=== PATIENT | female | born 1980 | race Caucasian/White ===

== ENCOUNTER 2023-12-16 12:32 | Outpatient (CLI) | payer BC, MEDICAID, SELFPAY ==
--- NOTE | 2023-12-16 12:41 | MM_ITS ---
WS: [id number] BILATERAL 3D TOMOSYNTHESIS DIGITAL DIAGNOSTIC MAMMOGRAPHY WITH CAD CLINICAL INFORMATION: Breast Lump HISTORY: LEFT breast lump COMPARISON: Baseline TECHNIQUE: Bilateral CC, MLO, and ML views. FINDINGS: The breasts are composed of heterogeneous fibroglandular density, which can limit the detection of sm all underlying mass lesions. Palpable marker near the 12 o'clock position LEFT breast. Dense underlyi ng parenchymal tissue. Ultrasound of this area is pending. Unremarkable RIGHT breast. A few incidental punctate calcifications. Vascular calcifications. ULTRASOUND BREAST LEFT TECHNIQUE: Ultrasound left breast focused area of concern. CLINICAL INFORMATION: Breast Lump FINDINGS: Ultrasound LEFT breast at the 11 o'clock position 7 cm from the nipple. Normal underlying parenchymal tissue. No cystic or solid lesions. No suspicious lesions to target for biopsy. No other suspicious findings. MM/[place] [id number] IMPRESSION: BI-RADS: 2-Benign FOLLOW UP: 1 Year Follow-up Recommend return to annual screening mammography.
== END 2023-12-16 12:33 | disposition home or self-care (01) ==
LOC: RAD 12:32
PROVIDERS: Family Provider Family Medicine; PCP Nurse Practitioner Family; Visit Provider Nurse Practitioner Family
DX: N63.0 Unspecified lump in unspecified breast (principal); R92.333 Mammographic heterogeneous density, bilateral breasts; R92.1 Mammographic calcification found on diagnostic imaging of breast
CPT/HCPCS: 76642; 77062; G0279

== ENCOUNTER 2023-12-27 12:26 | Outpatient (CLI) | payer BC, MEDICAID, SELFPAY ==
--- NOTE | 2023-12-27 12:29 | USR_ITS ---
PROCEDURE INFORMATION: Exam: US Abdomen Complete Exam date and time: 12/27/2023 2:04 PM Age: 43 years old Clinical indication: Abdominal pain; Generalized TECHNIQUE: Imaging protocol: Real-time ultrasound of the abdomen with image documentation. Complete exam. COMPARISON: CT lumbar spine wo con* [id number] 12/27/2023 1:35 PM FINDINGS: Liver: Liver length 13.2 cm. No focal mass or dilated intrahepatic ducts. Hepatopetal portal venous flow is seen. Gallbladder: No gallstones. No gallbladder wall thickening or pericholecystic fluid/edema. Gallbladder wall 2 mm. Biliary ducts: Common bile duct 2 mm. No dilatation. Pancreas: Visualized pancreas is unremarkable. Right kidney: 10.4 x 5.3 x 5.1 cm with renal cortical thickness of 1 cm. No mass. No hydronephrosis. Renal color flow noted. Left kidney: 9.1 x 4.7 x 5.1 cm with renal cortical thickness of 1 cm. No mass. No hydronephrosis. Renal color flow noted. Spleen: 10.7 x 8 x 4.1 cm and unremarkable in echotexture. Aorta: Unremarkable. 1.2 cm. No aneurysm. Inferior vena cava: Unremarkable. 1.4 cm. US/US abdomen complete* [id number] IMPRESSION: No acute findings.
--- NOTE | 2023-12-27 12:29 | CT_ITS ---
WS: [id number] CT LUMBAR SPINE TECHNIQUE: Noncontrast CT of the lumbar spine with coronal and sagittal reformatted images. CLINICAL INFORMATION: CLOSED FX LUMBAR VERTEBRA WEDGE COMPARISON: None. DLP: 347.[address] scans at [facility] use at least one of these dose optimization techniques: automated e xposure control; mA and/or kV adjustment per patient size (includes targeted exams where dose is matc hed to clinical indication); or iterative reconstruction. FINDINGS: Moderate anterior wedging at L1. No retropulsion. This has a chronic appearance. Minimal anterolisthe sis L4 on L5. No acute appearing compression fractures. L1-L2: Normal. L2-L3: Mild facet arthropathy. Spinal canal and foramen are patent. L3-L4: Mild annular bulging. Moderate facet arthropathy. Spinal canal and foramen are patent. L4-L5: Slight anterolisthesis. Mild annular bulging with slight narrowing LEFT subarticular recess. I mpingement traversing LEFT L5 nerve root. Moderate facet arthropathy. Foramen are patent. L5-S1: Mild annular bulging with a tiny shallow central protrusion. Slight effacement of the ventral thecal sac. Foramen are patent. Visualized pelvic bony structures: Normal. Paravertebral soft tissues: Normal. CT/CT lumbar spine wo con* [id number] IMPRESSION: 1. Moderate anterior wedging at L1 with loss of approximately 50% vertebral he ight anteriorly. This has a chronic appearance 2. No acute appearing compression fractures. 3. Mild annular bulging L4-5 with slight narrowing of the LEFT L4-5 subarticul ar recess. 4. Tiny shallow central protrusion L5-S1.
--- NOTE | 2023-12-27 12:29 | USR_ITS ---
PROCEDURE INFORMATION: Exam: US Pelvis, Complete, Non-Obstetric Exam date and time: 12/27/2023 2:40 PM Age: 43 years old Clinical indication: Abdominal pain; Other: Not specified; Additional info: Abdominal pain, PT having CT too TECHNIQUE: Imaging protocol: Transabdominal pelvic nonobstetric ultrasound. Complete exam. Real time ultrasound with image documentation. COMPARISON: US abdomen complete* [id number] 12/27/2023 2:04 PM FINDINGS: Limitations: Transvaginal exam attempted but unsuccessful as patient was in pain. Uterus: Uterus measures 6.7 x 5.7 cm on transverse exam and 9.4 cm on sagittal trace exam. Heterogeneous echotexture noted. Endometrium appears thickened, measuring 12 mm. Right ovary/adnexa: Right ovary measures 3.7 x 3.3 x 3 cm with a volume 19.2 mL. A rounded hypoechoic anechoic cyst of the right ovary is seen, measuring 2.2 x 2 x 1.8 cm. Right ovarian flow is seen. PSV 9.7 cm/s with EDV 4.5 cm/s. Left ovary/adnexa: Left ovary not visualized on evaluation of the left adnexal region. Intraperitoneal space: No significant free fluid. Urinary bladder: Urinary bladder is unremarkable as visualized. US/US pelvic complete* [id number] IMPRESSION: 1. Unable to perform transvaginal exam due to patient pain. 2. Heterogeneous echotexture of the uterus with consideration of fibroid appearance. 3. Endometrial thickening with measured endometrial thickness of 12 mm. 4. 2.2 x 2 x 1.8 cm right ovarian cyst. Right ovarian flow is seen. Left ovary not visualized.
== END 2023-12-27 12:27 | disposition home or self-care (01) ==
LOC: RAD 12:26
PROVIDERS: Family Provider Family Medicine; PCP Nurse Practitioner Family; Visit Provider Nurse Practitioner Family
DX: N83.291 Other ovarian cyst, right side (principal); S32.010A Wedge compression fracture of first lumbar vertebra, initial encounter for closed fracture; M47.896 Other spondylosis, lumbar region; R93.89 Abnormal findings on diagnostic imaging of other specified body structures; R10.9 Unspecified abdominal pain
CPT/HCPCS: 72131; 76700; 76856

== ENCOUNTER 2024-01-09 18:00 | Inpatient (IN) | payer BC, SELFPAY ==
[2024-01-09] VITALS (21 sets, daily range): BP systolic 102–123; BP diastolic 55–68; PULSE 82–102; RESP 14–21; TEMP 36.4–37.4; O2SAT 97–99; BMI 25.8; BMI 24.8
--- NOTE | 2024-01-09 18:07 | ED_ITS ---
HPI - Abdominal Pain 2 General: Chief Complaint: Abdominal Pain Stated Complaint: abd pain, n/v Time Seen by Provider: 01/09/24 18:06 History of Present Illness: 43-year-old female comes in today with n ausea vomiting and abdominal pain starting this afternoon. Patient was brought in by EMS from [place]. Patient appears restless and in moderate pain. Patient has a history of diabetes type 2, thyroid disorder, and high cholesterol. Patient does endorse use of marijuana and methamphetamines. Patient was given a total of 200 mcg of fentanyl and route along with 8 mg of Zofran. Patient reports taking a dose of Trulicity yesterday which had caused her some abdominal discomfort the last time but not this severe. Associated Symptoms: Reports nausea and vomiting Related Data Allergies Allergy/AdvReac Type Severity Reaction Status Date / Time No Known Allergies Allergy Verified 01/09/24 18:12 Review of Systems 2 General: Reports: 10 or more systems reviewed and unremarkable except in HPI and below GI: Reports: abdominal pain, nausea and vomiting Physical Exam 2 Const: COMMON NORMALS: alert HENMT: COMMON NORMALS: normocephalic HEAD & SCALP: normocephalic Neck/C-Spine: COMMON NORMALS: full ROM Resp: COMMON NORMALS: normal respiratory effort and clear to auscultation bilaterally AUSCULTATION: clear to auscultation bilaterally Cardio: COMMON NORMALS: regular rate and regular rhythm RATE: regular rate RHYTHM: regular rhythm GI: COMMON NORMALS: Soft to palpation AUSCULTATION: Yes Hyperactive bowel sounds present PALPATION: Yes Soft to palpation, Yes Tenderness to palpation present (GI) and Yes Guarding due to palpation present (GI) : COMMON NORMALS: Yes no CVA tenderness BLADDER/KIDNEY EXAM: Yes no CVA tenderness Back/Pelvis: COMMON NORMALS: no CVA tenderness Extremity: COMMON NORMALS: normal to inspection Neuro: SENSORIUM/ORIENTATION: Yes alert Skin: COMMON NORMALS: turgor normal GENERAL SKIN EXAM: turgor normal Course 2 Vital Signs: Vital signs: Vital Signs Temperature 97.5 F L 01/09/24 18:02 Pulse Rate 96 01/09/24 18:45 Respiratory Rate 20 H 01/09/24 18:02 Blood Pressure 116/59 01/09/24 18:45 Pulse Oximetry 99 01/09/24 18:45 Oxygen Delivery Me thod Room Air 01/09/24 18:02 MDM - Abdominal Pain Medical Decision Making 43-year-old female comes in today with complaints of abdominal pain and nausea and vomiting. Patient does admit to meth use today. Patient was brought in by EMS and was given 200 mcg of fentanyl and 8 mg Zofran and route. Last blood glucose was 318. Differential diagnosis includes but not limited to methamphetamine intoxication, dehydration, rhabdomyolysis, diabetic ketoacidosis, pancreatitis. Patient's blood sugar was 14, anion gap was 30, serum ketones was positive. White blood cell count was 15,000. 2029, reviewed case with Dr. Hannah who will accept patient to ICU for DKA but wanted to wait until the abdominal CT was complete. Patient was made aware of problem and need for treatment with admission and agreed to plan. 2129, abdominal CT noted no inner abdominal process. Patient will be admitted to ICU for diabetic ketoacidosis. Dr. Hannah agreed for admission. Dr. Maloney, attending ER physician, agreed the plan. Lab Data 01/09/24 19:09 01/09/24 19:09 Labs/Radiology: Radiology Impressions Abdomen/Pelvis CT 01/09/24 20:16 IMPRESSION: No acute intra-abdominal process. Laboratory Results WBC 15.25 10^3/uL (3.29-11.43) H 01/09/24 19:09 RBC 4.53 10^6/uL (3.85-5.65) 01/09/24 19:09 Hgb 12.30 g/dL (11.27-16.99) 01/09/24 19:09 Hct 39.0 % (36-47) 01/09/24 19:09 MCV 86.1 fl (85-98) 01/09/24 19:09 MCH 27.2 pg (27-33) 01/09/24 19:09 MCHC 31.5 g/dL (30-55) 01/09/24 19:09 RDW 15.6 % (12.1-15.1) H 01/09/24 19:09 Plt Count 377 10^3/cmm (157-399) 01/09/24 19:09 MPV 9.0 fL (7.4-10.4) 01/09/24 19:09 Neut % (Auto) 89.0 % 01/09/24 19:09 Lymph % (Auto) 5.6 % 01/09/24 19:09 [place] % (Auto) 4.3 % 01/09/24 19:09 Eos % (Auto) 0.1 % 01/09/24 19:09 Baso % (Auto) 0.5 % 01/09/24 19:09 Neut # (Auto) 13.59 10^3/uL (1.8-7.7) H 01/09/24 19:09 Lymph # (Auto) 0.9 10^3/uL (0.8-4.8) 01/09/24 19:09 [place] # (Auto) 0.7 10^3/uL (0.2-0.9) 01/09/24 19:09 Eos # (Auto) 0.0 10^3/uL (0.0-0.8) 01/09/24 19:09 Baso # (Auto) 0.1 10^3/uL (0.0-0.1) 01/09/24 19:09 Nucleated RBC % (auto) 0 % 01/09/24 19:09 Nucleated RBCs # 0.0 /100WBC 01/09/24 19:09 Specimen Type Arterial 01/09/24 20:15 Sample Site Radial, right 01/09/24 20:15 ABG pH 7.19 (7.35-7.45) L 01/09/24 20:15 ABG pCO2 34.2 mmHg (35-45) L 01/09/24 20:15 ABG pO2 44.1 mmHg (80.0-100.0) L 01/09/24 20:15 ABG HCO3 13.0 mmol/L (22-26) L 01/09/24 20:15 ABG Base Excess -14.2 mmol/L (-2.0-2.0) L 01/09/24 20:15 Manpreet Test Pos 01/09/24 20:15 Hematocrit 37.7 % (37-47) 01/09/24 20:15 O2 Delivery Device None 01/09/24 20:15 Residential Electrician ID Cl 01/09/24 20:15 Sodium 131 mmol/L (136-145) L 01/09/24 19:09 Potassium 4.8 mmol/L (3.5-5.1) 01/09/24 19:09 Chloride 93 mmol/L (98-107) L 01/09/24 19:09 Carbon Dioxide 12 mmol/L (22-29) L 01/09/24 19:09 Anion Gap 30.8 (5-19) H 01/09/24 19:09 BUN 20 mg/dL (6-20) 01/09/24 19:09 Creatinine 0.7 mg/dL (0.5-0.9) 01/09/24 19:09 GFR Calculation 91.8 mL/min (90-130) 01/09/24 19:09 Glucose 410 mg/dL (65-115) H 01/09/24 19:09 POC Glucose 373 mg/dL (70-110) H 01/09/24 20:55 Calculated Osmolality 292 mOsm/kg (285-295) 01/09/24 19:09 Lactic Acid 2.1 mmol/L (0.5-2.2) 01/09/24 19:09 Calcium 8.9 mg/dL (8.5-10.5) 01/09/24 19:09 Phosphorus 4.7 mg/dL (2.5-4.5) H 01/09/24 19:09 Magnesium 1.8 mg/dL (1.7-2.3) 01/09/24 19:09 Total Bilirubin 0.4 mg/dL (0.15-1.2) 01/09/24 19:09 AST 15 U/L (0-32) 01/09/24 19:09 ALT 12 U/L (0-33) 01/09/24 19:09 Alkaline Phosphatase 73 U/L (35-105) 01/09/24 19:09 Creatine Kinase 63 U/L (26-192) 01/09/24 19:09 C-Reactive Protein 4.4 mg/L (0.0-4.9) 01/09/24 19:09 Total Protein 7.0 g/dL (6.6-8.7) 01/09/24 19:09 Albumin 4.1 g/dL (3.5-5.2) 01/09/24 19:09 Globulin 2.9 g/dL (1.3-4.6) 01/09/24 19:09 Lipase 9 U/L (13-60) L 01/09/24 19:09 TSH 3.31 uIU/mL (0.27-4.20) 01/09/24 19:09 HCG, Qual Negative (Negative) 01/09/24 19:09 Urine Color Yellow (Yellow) 01/09/24 20:59 Urine Appearance Clear (CLEAR) 01/09/24 20:59 Urine pH 5.5 (5-7) 01/09/24 20:59 Ur Specific [place] 1.030 (1.005-1.030) 01/09/24 20:59 Urine Protein 1+ (Negative) A 01/09/24 20:59 Urine Glucose (UA) 3+ (Normal) H 01/09/24 20:59 Urine Ketones 4+ (Negative) 01/09/24 20:59 Urine Blood 2+ (Negative) A 01/09/24 20:59 Urine Nitrate Negative (Negative) 01/09/24 20:59 Urine Bilirubin Negative (Negative) 01/09/24 20:59 Urine Urobilinogen 1.0 mg/dL (Negative) 01/09/24 20:59 Ur Leukocyte Esterase Negative (Negative) 01/09/24 20:59 Urine RBC 0-2 /hpf (0-2) 01/09/24 20:59 Urine WBC 0-5 /hpf (0-5) 01/09/24 20:59 Ur Squamous Epith Cells 0-5 /hpf (0-5) 01/09/24 20:59 Amorphous Sediment Not Reportable 01/09/24 20:59 Urine Bacteria None seen /hpf (NONE) 01/09/24 20:59 Hyaline Casts 2.46 /lpf 01/09/24 20:59 Serum Ketones Positive (Negative) H 01/09/24 19:09 All radiology interpretation(s) finalized by discharge Discharge Plan Discharge Patient Disposition: Admitted As Inpatient Clinical Impression: Methamphetamine intoxication DKA (diabetic ketoacidosis) Qualifiers: Diabetes mellitus type: type 2 Diabetes mellitus complication detail: without coma Qualified Code(s): E11.10 - Type 2 diabetes mellitus with ketoacidosis without coma Condition: Stable Coding Level of Care Code ED Floor Cashier for Dianna Valdez
[2024-01-09] MEDS: metoclopramide 5 mg/mL SDV 2 mL 10 MG IVP (18:43)
[2024-01-09] MEDS: LORazepam 2 mg/mL INJ 1 mL IVP (18:43)
[2024-01-09] MEDS: sodium chloride 0.9% 1,000 ML 999 ML IV ×2 (18:43→20:58)
[2024-01-09 19:27] LABS: Basophils # 0.1 10^3/uL (0.0-0.1); Basophils % 0.5 %; Eosinophils % 0.1 %; Lymphocytes # 0.9 10^3/uL (0.8-4.8); Lymphocytes % 5.6 %; Mean Corpuscular HGB Conc 31.5 g/dL (30-55); Mean Corpuscular Hemoglobin 27.2 pg (27-33); Mean Corpuscular Volume 86.1 fl (85-98); Monocytes # 0.7 10^3/uL (0.2-0.9); Monocytes % 4.3 %; Neutrophils # 13.59 10^3/uL (1.8-7.7); Nucleated Red Blood Cells % 0 %; Platelet Count 377 10^3/cmm (157-399); Red Blood Count 4.53 10^6/uL (3.85-5.65); Red Cell Distribution Width 15.6 % (12.1-15.1); White Blood Count 15.25 10^3/uL (3.29-11.43)
[2024-01-09 19:36] LABS: Ketone (Acetest) Serum Positive (Negative)
[2024-01-09 19:37] LABS: HCG, Serum Qual Negative (Negative)
[2024-01-09 19:46] LABS: Alanine Aminotransferase 12 U/L (0-33); Albumin Level 4.1 g/dL (3.5-5.2); Alkaline Phosphatase 73 U/L (35-105); Anion Gap 30.8 (5-19); Aspartate Amino Transferase 15 U/L (0-32); Blood Urea Nitrogen 20 mg/dL (6-20); C Reactive Protein 4.4 mg/L (0.0-4.9); Calcium 8.9 mg/dL (8.5-10.5); Carbon Dioxide 12 mmol/L (22-29); Chloride 93 mmol/L (98-107); Creatine Phosphokinase 63 U/L (26-192); Creatinine Clr Calc Pharmacy 110.5662; Globulin 2.9 g/dL (1.3-4.6); Glomerular Filtration Rate 91.8 mL/min (90-130); Glucose 410 mg/dL (65-115); Lipase 9 U/L (13-60); Osmolality Calculated 292 mOsm/kg (285-295); Potassium 4.8 mmol/L (3.5-5.1); Sodium 131 mmol/L (136-145); Total Bilirubin 0.4 mg/dL (0.15-1.2)
--- NOTE | 2024-01-09 20:16 | CTR_ITS ---
PROCEDURE INFORMATION: Exam: CT Abdomen And Pelvis With Contrast Exam date and time: 01/09/2024 8:36 PM Age: 43 years old Clinical indication: Abdominal pain; Additional info: Abd pain TECHNIQUE: Imaging protocol: Computed tomography of the abdomen and pelvis with contrast. Radiation optimization: All CT scans at this facility use at least one of these dose optimization techniques: automated exposure control; mA and/or kV adjustment per patient size (includes targeted exams where dose is matched to clinical indication); or iterative reconstruction. Contrast material: OMNI 350; Contrast volume: 100 ml; Contrast route: INTRAVENOUS (IV); COMPARISON: US pelvic complete* [id number] 12/27/2023 2:40 PM RADIATION DOSE METRICS: Total DLP (mGy-cm): 495 FINDINGS: Liver: Normal. No mass. Gallbladder and biliary ducts: Normal. No calcified stones. No ductal dilation. Pancreas: Normal. No ductal dilation. Spleen: Calcified granulomas in the spleen. Adrenal glands: Normal. No mass. Kidneys and ureters: Normal. No hydronephrosis. Stomach and bowel: Unremarkable. No obstruction. No mucosal thickening. Appendix: No evidence of appendicitis. Intraperitoneal space: Unremarkable. No free air. No significant fluid collection. Vasculature: Vascular calcifications. Lymph nodes: Unremarkable. No enlarged lymph nodes. Urinary bladder: Unremarkable as visualized. Reproductive: Unremarkable as visualized. Bones/joints: Mild degenerative of the symphysis pubis and sacroiliac joints. Mild degenerative disease of both hip joints. Chronic severe compression deformity of the L1 vertebral body. Soft tissues: Small fat containing umbilical hernia. CT/CT abdomen pelvis w con* [id number] IMPRESSION: No acute intra-abdominal process.
[2024-01-09 20:23] LABS: ABG PCO2 34.2 mmHg (35-45); ABG PH Result 7.19 (7.35-7.45); Arterial Blood Gas Hematocrit 37.7 % (37-47); Base Excess ABG -14.2 mmol/L (-2.0-2.0); Blood Gas Allen Test Pos; Blood Gas Operator Identificat CL; Blood Gas Sample Site Radial, right; Blood Gas Sample Type Arterial; PO2 ABG 44.1 mmHg (80.0-100.0)
[2024-01-09 20:33] LABS: Magnesium 1.8 mg/dL (1.7-2.3); Phosphorus 4.7 mg/dL (2.5-4.5)
[2024-01-09] MEDS: iohexol 350 mg/mL 500 mL Btl (per mL) IV (20:39)
[2024-01-09] MEDS: insulin regular-human 100 units/1 mL 10 UNIT IVP (20:58)
[2024-01-09 20:59] LABS: Glucose Point of Care 373 mg/dL (70-110)
[2024-01-09 21:03] LABS: Charge for UA Resulting for Rev
[2024-01-09 21:05] LABS: Bilirubin Urine Negative (Negative); Blood Urine 2+ (Negative); Glucose Urine UA 3+ (Normal); Ketones Urine 4+ (Negative); Leukocyte Esterase Urine Negative (Negative); Nitrate Urine Negative (Negative); Protein Urine 1+ (Negative); Urine Appearance Clear (CLEAR); Urine Color Yellow (Yellow); pH Urine 5.5 (5-7)
[2024-01-09 21:05] LABS: Thyroid Stimulating Hormone 3.31 uIU/mL (0.27-4.20)
[2024-01-09 21:06] LABS: Lactic Sepsis W/Reflex 2.1 mmol/L (0.5-2.2)
[2024-01-09 21:19] LABS: Bacteria Urine None Seen /hpf; Hyaline Casts Urine 2.46 /lpf; RBC Urine 0-2 /hpf (0-2); Squamous Epithelial Cell Urine 0-5 /hpf (0-5); WBC Urine 0-5 /hpf (0-5)
--- NOTE | 2024-01-09 21:45 | PM.HP ---
Providers/Chief Complaint Admitting Physician: Reggie Hannah Primary Care Provider: Cheryl Dotson [employer] REPRESENTATIVE-C Chief Complaint: abd pain, n/v History of Present Illness 43-year-old lady with history of labile diabetes, on insulin as well as Trulicity, has been reports in the past had difficulties with maintaining blood glucose with intermittent hypoglycemia episodes, presented to ER after developing abdominal pain, nausea, recurrent episodes of vomiting, malaise, fatigue, she initially said she thought was triggered by Trulicity, her, reportedly also later admitted to having taken methamphetamine. Mental status in ER has been on and off per , with some lethargy, confusion. Will blood earlier she was awake, asked for ice chips and threw them on the floor. During my visit she is sleeping, moves all extremities, repositions in bed, does not wake up when I try to ask her questions. In ER she is found with dehydration, metabolic acidosis, ABG 7.19/34.2/44, with anion gap 30.8, bicarb 12, lipase 9, TSH normal, lactic acid 2.1, with positive serum and urine ketones. With leukocytosis 15.25. CT abdomen pelvis without acute process. Review of Systems General: Reports: ROS unobtainable due to mental status Medications/Allergies Allergies Allergy/AdvReac Type Severity Reaction Status Date / Time No Known Allergies Allergy Verified 01/09/24 18:12 PFSH Acute PFSH: Medical History Diabetes mellitus, labile Vitals/I&O/Wt Last Vital Signs Temp 97.5 F L 01/09/24 18:02 Pulse 96 01/09/24 18:45 Resp 20 H 01/09/24 18:02 BP 116/59 01/09/24 18:45 Pulse Ox 99 01/09/24 18:45 O2 Del Method Room Air 01/09/24 18:02 01/09/24 01/09/24 01/09/24 06:59 14:59 22:59 Intake Total 1000 / 1000 Balance 1000 / 1000 Weight last 48 hrs Weight 74.843 kg Physical Exam Const: ORIENTATION/CONSCIOUSNESS: Yes lethargic OTHER: states mental status has been in and out, with lethargy, was awake, but earlier asking for ice chips, but confused, through the ice chips over the floor. HENMT: COMMON NORMALS: oropharynx normal Eye: OTHER: Pupils equal. Neck/C-Spine: COMMON NORMALS: no JVD Resp: COMMON NORMALS: normal respiratory effort and clear to auscultation bilaterally AUSCULTATION: clear to auscultation bilaterally Cardio: COMMON NORMALS: no JVD, regular rhythm, S1 normal heart sound present, S2 normal heart sound present and No murmurs present (Cardio) RHYTHM: regular rhythm HEART SOUNDS: S1 normal heart sound present and S2 normal heart sound present GI: COMMON NORMALS: Normal to inspection, nondistended, normoactive bowel sounds present, Soft to palpation and non-tender PALPATION: Yes Soft to palpation Extremity: COMMON NORMALS: no joint enlargement and no pedal edema Neuro: COMMON NORMALS: moves all extremities SENSORIUM/ORIENTATION: Yes alert OTHER: No rigidity. No tremor. Skin: COMMON NORMALS: no rashes or lesions noted GENERAL SKIN EXAM: no rashes or lesions noted Data 01/09/24 19:09 01/09/24 19:09 Micro: Microbiology 01/09/24 20:59 Blood Culture - Preliminary Blood SPECIMEN COLLECTED 01/09/24 20:49 Blood Culture - Preliminary Blood SPECIMEN COLLECTED A&P Assessment and plan (1) DKA (diabetic ketoacidosis): With malaise, abdominal discomfort, nausea, vomiting, fatigue, with dehydration, metabolic acidosis, reviewed vitals, CBC, CMP, magnesium, phosphorus, lactic acid, CK, CRP, lipase, TSH, hCG, UA, serum ketones, CT abdomen pelvis, ER provider note, discussed with ER provider. Finding of ketoacidosis with metabolic acidosis, 7.29/34.2/44.1/13 on ABG, with anion gap of 30.8, bicarb 12, glucose 410, with positive serum and urine ketones. With nausea vomiting, abdominal pain, lactic acid is normal. CT abdomen pelvis unremarkable. Discussed with her . As per discussion admitted treatment intensive care unit, insulin drip, IV hydration, chemistry monitoring, intake and output monitoring replace electrolytes depending on repeat studies. PPI prophylaxis, VTE prophylaxis with Lovenox. Caution on resumption of subcutaneous insulin, states previously with labile diabetes, glucose sometimes down as low as 30s. Has been on 35 units of long-acting insulin as well as Trulicity and metformin. Check A1c. Abdominal pain, nausea and vomiting. PPI, Zofran as needed. CT abdomen pelvis without acute abnormality. Lipase normal. N.p.o., sips chips, meds only if awake. Discussed with aspiration precautions. Requested respiratory viral panel. Qualifiers: Diabetes mellitus complication detail: without coma Diabetes mellitus type: type 2 Qualified Code(s): E11.10 - Type 2 diabetes mellitus with ketoacidosis without coma (2) Acute encephalopathy: Acute metabolic encephalopathy with DKA, also reported she had taken methamphetamine, possible acute methamphetamine defecation as per report, although she is somewhat confused currently. Will request UDS. Assess head CT. Otherwise afebrile, without meningeal signs, without obvious focal abnormality, although could not perform full examination. Intensive care admission as above. Treat dehydration, DKA. Monitor for any complications of methamphetamine use, possible withdrawal. Revisit once she is awake, able to further discuss. (3) Methamphetamine intoxication: As above. She reportedly stated she did take methamphetamine. Monitor for any worsening intoxication, seizure precautions, any signs of withdrawal. Route is unknown. Blood cultures are collected. Requested UDS. (4) Diabetes mellitus, labile: With history of labile diabetes, glucose fluctuating while on insulin with episodic hypoglycemia down into 30s. Check A1c. Plan Requested to confirm home medications, please review once available. Attestations Medical Necessity Statement*: Admission for 2 midnights anticipated for assessment management of DKA, acute metabolic and possibly toxic encephalopathy. Coding Level of Care Code Critical Care >/= 30 minutes Critical care time (in minutes): 40 The high probability of a clinically significant, sudden or life threatening deterioration, as referenced in this documentation, required my full and direct attention, intervention and personal management. The critical care time shown is in addition to time spent performing any reported separately billable procedures and includes the following: [x] Data and vital sign review and interpretation [x] Patient assessment, examination and intervention [x] Medication orders and management [x] Patient/Family updates as able [x] Care Coordination and Documentation. Diagnoses DKA (diabetic ketoacidosis) E11.10 Diabetes mellitus complication detail: without coma Diabetes mellitus type: type 2 Acute encephalopathy G93.40 Methamphetamine intoxication F15.929 Diabetes mellitus, labile E10.9
--- NOTE | 2024-01-09 21:47 | CTR_ITS ---
PROCEDURE INFORMATION: Exam: CT Head Without Contrast Exam date and time: 01/09/2024 9:57 PM Age: 43 years old Clinical indication: Screening exam; Additional info: AMS TECHNIQUE: Imaging protocol: Computed tomography of the head without contrast. Radiation optimization: All CT scans at this facility use at least one of these dose optimization techniques: automated exposure control; mA and/or kV adjustment per patient size (includes targeted exams where dose is matched to clinical indication); or iterative reconstruction. COMPARISON: No relevant prior studies available. RADIATION DOSE METRICS: Total DLP (mGy-cm): 1059.18 FINDINGS: Brain: Normal. No hemorrhage. Unremarkable white matter. No mass effect. Contrast is seen in the dural venous sinuses, from prior CT abdomen with IV contrast. Cerebral ventricles: No ventriculomegaly. Paranasal sinuses: Visualized sinuses are unremarkable. No fluid levels. Mastoid air cells: Visualized mastoid air cells are well aerated. Bones: Unremarkable. No acute fracture. Soft tissues: Unremarkable. CT/CT head wo con* [id number] IMPRESSION: No acute intracranial abnormality.
[2024-01-09 21:56] LABS: Glucose Point of Care 282 mg/dL (70-110)
[2024-01-09] MEDS: INSULIN REGULAR IN 0.9 % NACL 100 UNIT/100 ML BAG 7.5 UNIT IV (21:58)
[2024-01-09 22:42] LABS: Reflex Lactate Order REFLEX LACTIC ORDERD
[2024-01-09 22:46] LABS: Glucose Point of Care 287 mg/dL (70-110)
[2024-01-09 23:21] LABS: Lactic Acid level (Lactate) 1.7 mmol/L (0.5-2.2)
[2024-01-09] MEDS: sodium chlor 0.9% + KCl 20 mEq 20 MEQ/1,000 ML BAG 200 MEQ IV (23:26)
[2024-01-09] MEDS: enoxaparin 40 mg/0.4 mL Syringe SUBCUT (23:27)
[2024-01-09] MEDS: pantoprazole 40 mg SDV IVP (23:27)
[2024-01-09 23:56] LABS: Estmated Average Glucose 232; Hemoglobin A1C 9.7 % (4.0-6.0)
[2024-01-10] VITALS (56 sets, daily range): BP systolic 86–121; BP diastolic 48–70; PULSE 67–108; RESP 12–23; TEMP 37–37.8; O2SAT 92–100; BMI 25.3
[2024-01-10 00:35] LABS: Amphetamines Screen Urine Positive (Negative); Barbiturates Screen Urine Negative (Negative); Benzodiazepines Screen Urine Negative (Negative); Cocaine Screen Urine Negative (Negative); Opiate Screen Urine Negative (Negative); PCP Screen Urine Negative (Negative); THC Screen Urine Positive (Negative)
[2024-01-10] MEDS: D5-NS 0.45% + KCL 20 mEq 20 MEQ/1,000 ML BAG 200 MEQ IV ×2 (01:18→06:52)
[2024-01-10 01:19] LABS: Glucose Point of Care 264 mg/dL (70-110)
[2024-01-10 01:30] LABS: Glucose Point of Care 181 mg/dL (70-110)
[2024-01-10 01:33] LABS: Adenovirus Not Detected (NOT DETECT); Chlamydia Pneumoniae Not Detected (NOT DETECT); Coronavirus 229E,HKU1,NL63,OC4 Not Detected (NOT DETECT); Human Metapneumovirus Not Detected (NOT DETECT); Human Rhinovirus/Enterovirus Not Detected (NOT DETECT); Influenza A Not Detected (NOT DETECT); Influenza A H1 Not Detected (NOT DETECT); Influenza A H1-2009 Not Detected (NOT DETECT); Influenza A H3 Not Detected (NOT DETECT); Influenza B Not Detected (NOT DETECT); Mycoplasma Pneumoniae Not Detected (NOT DETECT); Parainfluenza Virus Type 1 Not Detected (NOT DETECT); Parainfluenza Virus Type 2 Not Detected (NOT DETECT); Parainfluenza Virus Type 3 Not Detected (NOT DETECT); Parainfluenza Virus Type 4 Not Detected (NOT DETECT); Respiratory Syncytial Virus A Not Detected (NOT DETECT); Respiratory Syncytial Virus B Not Detected (NOT DETECT); SARS-COV-2 Not Detected (NOT DETECT)
[2024-01-10 01:34] LABS: Anion Gap 21.2 (5-19); Blood Urea Nitrogen 19 mg/dL (6-20); Calcium 7.7 mg/dL (8.5-10.5); Carbon Dioxide 14 mmol/L (22-29); Chloride 103 mmol/L (98-107); Creatinine Clr Calc Pharmacy 108.6867; Glomerular Filtration Rate 91.8 mL/min (90-130); Glucose 216 mg/dL (65-115); Magnesium 1.7 mg/dL (1.7-2.3); Osmolality Calculated 287 mOsm/kg (285-295); Phosphorus 3.1 mg/dL (2.5-4.5); Potassium 4.2 mmol/L (3.5-5.1); Sodium 134 mmol/L (136-145)
[2024-01-10 02:31] LABS: Glucose Point of Care 159 mg/dL (70-110)
[2024-01-10 03:28] LABS: Glucose Point of Care 171 mg/dL (70-110)
[2024-01-10 03:54] LABS: Basophils # 0.1 10^3/uL (0.0-0.1); Basophils % 0.5 %; Hematocrit 32.9 % (36-47); Lymphocytes # 2.2 10^3/uL (0.8-4.8); Lymphocytes % 17.1 %; Mean Corpuscular HGB Conc 32.8 g/dL (30-55); Mean Corpuscular Hemoglobin 27.5 pg (27-33); Mean Corpuscular Volume 83.7 fl (85-98); Mean Platelet Volume 9.1 fL (7.4-10.4); Monocytes # 1.6 10^3/uL (0.2-0.9); Monocytes % 12.2 %; Neutrophils # 9.14 10^3/uL (1.8-7.7); Nucleated Red Blood Cells % 0 %; Platelet Count 343 10^3/cmm (157-399); Red Blood Count 3.93 10^6/uL (3.85-5.65); Red Cell Distribution Width 15.5 % (12.1-15.1); White Blood Count 13.07 10^3/uL (3.29-11.43)
[2024-01-10 04:07] LABS: Glucose Point of Care 181 mg/dL (70-110)
[2024-01-10 04:15] LABS: Alanine Aminotransferase 9 U/L (0-33); Albumin Level 3.5 g/dL (3.5-5.2); Alkaline Phosphatase 58 U/L (35-105); Anion Gap 16.6 (5-19); Aspartate Amino Transferase 12 U/L (0-32); Blood Urea Nitrogen 17 mg/dL (6-20); Calcium 7.7 mg/dL (8.5-10.5); Carbon Dioxide 17 mmol/L (22-29); Chloride 105 mmol/L (98-107); Creatinine Clr Calc Pharmacy 108.6867; Globulin 2.1 g/dL (1.3-4.6); Glomerular Filtration Rate 91.8 mL/min (90-130); Glucose 197 mg/dL (65-115); Magnesium 1.7 mg/dL (1.7-2.3); Osmolality Calculated 285 mOsm/kg (285-295); Phosphorus 3.5 mg/dL (2.5-4.5); Potassium 4.6 mmol/L (3.5-5.1); Sodium 134 mmol/L (136-145); Total Bilirubin 0.3 mg/dL (0.15-1.2); Total Protein 5.6 g/dL (6.6-8.7)
[2024-01-10 05:13] LABS: Glucose Point of Care 185 mg/dL (70-110)
[2024-01-10 06:10] LABS: Glucose Point of Care 192 mg/dL (70-110)
--- NOTE | 2024-01-10 06:44 | FL_ITS ---
WS: [id number] LUMBAR PUNCTURE CLINICAL INFORMATION: AMS, fever COMPARISON: None. TECHNIQUE: Informed consent: The procedure and its potential risk and complications were discussed with the raul ent. Verbal and written consent was obtained. Timeout: A timeout was performed to confirm correct patient, procedure, and site. Patient was prepped and draped in the usual sterile fashion. Lidocaine 1% was used for local anesthes ia. Utilizing fluoroscopic guidance, a 3.5 inch 22-gauge spinal needle was advanced into the subarach noid space at L4-5 via LEFT oblique sublaminar approach. Free flow of clear CSF was obtained. 13 cc o f CSF was collected and sent the lab for further analysis. FLUOROSCOPIC TIME: 1min [id number] # of spot films: 1 FL/FL guided lumbarpunc dx* [id number] IMPRESSION: Fluoroscopically guided lumbar puncture. No immediate complications
--- NOTE | 2024-01-10 06:54 | P.PHAVANC_ITS ---
Vancomycin Goal - Goal Vancomycin Goal:: 10-15 mg/L Vancomycin Indication:: Other (Empiric Therapy) - Therapy Current therapy:: Other Antibiotic (Ceftriaxone 2 gm) Day of therpy:: Day [1]of [] . Actual body weight (kg): 73.5 kg Economy body weight: 59.3 kg Dosing weight (kg): 73.5 kg - Data Labs: WBC 13.07 10^3/uL (3.29-11.43) H 01/10/24 03:43 RBC 3.93 10^6/uL (3.85-5.65) 01/10/24 03:43 Hgb 10.80 g/dL (11.27-16.99) L 01/10/24 03:43 Hct 32.9 % (36-47) L 01/10/24 03:43 MCV 83.7 fl (85-98) L 01/10/24 03:43 MCH 27.5 pg (27-33) 01/10/24 03:43 MCHC 32.8 g/dL (30-55) 01/10/24 03:43 RDW 15.5 % (12.1-15.1) H 01/10/24 03:43 Sodium 134 mmol/L (136-145) L 01/10/24 03:43 Potassium 4.6 mmol/L (3.5-5.1) 01/10/24 03:43 Chloride 105 mmol/L (98-107) 01/10/24 03:43 Carbon Dioxide 17 mmol/L (22-29) L 01/10/24 03:43 Anion Gap 16.6 (5-19) 01/10/24 03:43 BUN 17 mg/dL (6-20) 01/10/24 03:43 Creatinine 0.7 mg/dL (0.5-0.9) 01/10/24 03:43 GFR Calculation 91.8 mL/min (90-130) 01/10/24 03:43 Last dialysis session:: N/A Drug administration history:: Medications Ceftriaxone Sodium (Ceftriaxone 2,000 Mg Sdv) 2,000 mg IVP Q12H EDDIE; Protocol Vancomycin HCl (Vancocin) 1,250 mg in 250 mls @ 166.667 mls/hr IV Q12H EDDIE Treatment plan:: new consult Regimen:: Vancomycin 1250mg IVPB Q12H Follow up:: SCr daily with AM labs Vancomycin Trough before 4th dose Rationale:: Cmax 32.5 expected Cpeak 29.8 expected Cmin 13.8 expected
[2024-01-10 07:03] LABS: Glucose Point of Care 205 mg/dL (70-110)
[2024-01-10] MEDS: vancomycin 1,250 MG/250 ML PIGGYBACK 166.67 MG IV ×2 (07:17→18:16)
[2024-01-10] MEDS: cefTRIAXone 2,000 mg SDV 2000 MG IVP (07:17)
[2024-01-10] MEDS: water for injection-sterile 20 ML 100 ML (07:27)
[2024-01-10 08:12] LABS: Glucose Point of Care 193 mg/dL (70-110)
[2024-01-10 09:11] LABS: Glucose Point of Care 241 mg/dL (70-110)
--- NOTE | 2024-01-10 09:14 | PC.PHAR ---
Spouse has rx bottles in room. Verified with pharmacy, the following: Atorvastatin 40mg replaced with Rosuvastatin 10mg. levothyroxine increased from 88mcg to 100mcg. Pt picked up Zofran 8mg odt yesterday.
[2024-01-10 10:13] LABS: Iron 41 ug/dL (37-145)
[2024-01-10 10:29] LABS: Vitamin B12 590 pg/mL (232-1245)
[2024-01-10 10:40] LABS: Blood Urea Nitrogen 14 mg/dL (6-20); Calcium 7.5 mg/dL (8.5-10.5); Carbon Dioxide 16 mmol/L (22-29); Chloride 104 mmol/L (98-107); Creatinine Clr Calc Pharmacy 127.9581; Glomerular Filtration Rate 109.6 mL/min (90-130); Glucose 255 mg/dL (65-115); Osmolality Calculated 285 mOsm/kg (285-295); Sodium 133 mmol/L (136-145)
[2024-01-10 10:45] LABS: Anion Gap 17.2 (5-19); Potassium 4.2 mmol/L (3.5-5.1)
[2024-01-10 10:48] LABS: Percent Saturation 18.6 % (20-50); Total Iron Binding Capacity 220 mcg/dl; Unsaturated Iron Binding 179 ug/dL (112-347)
[2024-01-10 10:57] LABS: Glucose Point of Care 235 mg/dL (70-110)
[2024-01-10] MEDS: piperacillin-tazobactam 3.375 GM in sodium chloride 0.9% (plus) 50 ML IV ×2 (12:29→18:16)
[2024-01-10] MEDS: dextrose 5%-sod chloride 0.9% 1,000 ML 125 ML IV (12:30)
--- NOTE | 2024-01-10 13:17 | P.PN_ITS ---
Subjective 2 Subjective: Admitted overnight. H&P and labs appreciated. On examination patient laying comfortably in bed, drowsy, at bedside. Patient is able to wake up and gives some history. Denies any headache or photophobia. Complaining of mild back pain. Appreciate vitals. Vitals/I&O/Wt Last Vital Signs Temp 100.1 F H 01/10/24 04:00 Pulse 72 01/10/24 09:00 Resp 13 01/10/24 09:00 BP 100/60 01/10/24 09:00 Pulse Ox 98 01/10/24 09:00 O2 Del Method Room Air 01/10/24 06:00 01/09/24 01/10/24 01/10/24 22:59 06:59 14:59 Intake Total 1000 / 1000 2411.600 / 3411.600 0.883 / 0.883 Output Total 250 / 250 Balance 1000 / 1000 2161.600 / 3161.600 0.883 / 0.883 Weight last 48 hrs Weight 73.5 kg Weight 73.5 kg Weight 72 kg Weight 74.843 kg Physical Exam 2 Const: COMMON NORMALS: no acute distress, average body habitus and alert G ENERAL APPEARANCE: cooperative, lethargic and well hydrated O RIENTATION/CONSCIOUSNESS: Yes lethargic HENMT: COMMON NORMALS: oropharynx normal Eye: OTHER: Pupils equal. Neck/C-Spine: COMMON NORMALS: no JVD Resp: COMMON NORMALS: normal respiratory effort and clear to auscultation bilaterally AUSCULTATION: clear to auscultation bilaterally Cardio: COMMON NORMALS: no JVD, regular rhythm, S1 normal heart sound present, S2 normal heart sound present and No murmurs present (Cardio) RHYTHM: regular rhythm HEART SOUNDS: S1 normal heart sound present and S2 normal heart sound present GI: COMMON NORMALS: Normal to inspection, nondistended, normoactive bowel sounds present, Soft to palpation and non-tender PALPATION: Yes Soft to palpation Extremity: COMMON NORMALS: no joint enlargement and no pedal edema Neuro: COMMON NORMALS: moves all extremities SENSORIUM/ORIENTATION: Yes alert and Yes lethargic OTHER: No rigidity. No tremor. Skin: COMMON NORMALS: no rashes or lesions noted GENERAL SKIN EXAM: no rashes or lesions noted Urinary Catheter Management: Arnold: Cath Placed During This Visit: yes Reason for Continuing Indwelling Catheter: Accurate Measurement of Urinary Output in Critically Ill Patients Urinary Catheter Date of Insertion: 01/09/24 Urinary Catheter Time of Insertion: 23:36 Data 01/10/24 03:43 01/10/24 15:09 Micro: Microbiology 01/09/24 20:59 Blood Culture - Preliminary Blood SPECIMEN COLLECTED 01/09/24 20:49 Blood Culture - Preliminary Blood SPECIMEN COLLECTED A&P Assessment and plan (1) DKA (diabetic ketoacidosis): Continue with insulin drip for now. Most recent BMP shows elevated anion gap. Check BMP every 4 hour. Monitor potassium. Target over 5. Switch fluid to D5 NS at 125 cc for now. A1c of 9.7. Patient takes Trulicity, Lantus and sliding scale at home. Will plan to transition over to sliding scale Lantus depending on insulin requirement 24 hours. Once anion gap closes we will plan to start on Lantus diet. N.p.o. for now. Qualifiers: Diabetes mellitus complication detail: without coma Diabetes mellitus type: type 2 Qualified Code(s): E11.10 - Type 2 diabetes mellitus with ketoacidosis without coma (2) Acute encephalopathy: Most likely in setting of DKA along with amphetamine abuse. Urine drug screen positive for methamphetamines. Seems to be resolving. Lumbar puncture ordered overnight with concerns for meningitis. For now concerns are low as patient does not have any photophobia, headache, nausea and kernig's sign is negative. Aspiration precaution. Seizure precaution. Follow-up blood culture. Check MRSA swab. For now continue with IV vancomycin. Switch to IV Zosyn. (3) Methamphetamine intoxication: As above. She reportedly stated she did take methamphetamine. Monitor for any worsening intoxication, seizure precautions, any signs of withdrawal. Route is unknown. Blood cultures are collected. Requested UDS. (4) Diabetes mellitus, labile: With history of labile diabetes, glucose fluctuating while on insulin with episodic hypoglycemia down into 30s. Check A1c. Plan Abdominal pain: Most likely in setting of DKA. CT abdomen/pelvis negative for acute abnormality. Lipase normal. LFTs within normal limits. Continue with Protonix IV, Zofran as needed. Medical reconciliation appreciated. Restart home dose of levothyroxine. Check TSH. Full code N.p.o. Protonix for PUD prophylaxis Lovenox for DVT prophylaxis Attestations 2 Medical Necessity Statement*: Requires further hospitalization for management of diabetic ketoacidosis, acute metabolic encephalopathy in setting of DKA, amphetamine abuse viral meningitis is ruled out Critical Care Time: The high probability of a clinically significant, sudden or life threatening deterioration of the patient's [endocrine, neurology] system(s) required my full and direct attention, intervention and personal management. The critical care time is as shown. This time is in addition to time spent performing any reported procedures but includes the following: [x] Data and vital sign review and interpretation [x] Patient assessment, examination and intervention [x] Documentation [x] Medication orders and management Critical Care Time (min): 70 Coding Level of Care Code Critical Care >/= 30 minutes Critical care time (in minutes): 70 The high probability of a clinically significant, sudden or life threatening deterioration, as referenced in this documentation, required my full and direct attention, intervention and personal management. The critical care time shown is in addition to time spent performing any reported separately billable procedures and includes the following: [x] Data and vital sign review and interpretation [x ] Patient assessment, examination and intervention [x] Medication orders and management [x] Patient/Family updates as able [x] Care Coordination and Documentation. Diagnoses DKA (diabetic ketoacidosis) E11.10 Diabetes mellitus complication detail: without coma Diabetes mellitus type: type 2 Acute encephalopathy G93.40 Methamphetamine intoxication F15.929 Diabetes mellitus, labile E10.9
[2024-01-10 14:48] LABS: Glucose Point of Care 216 mg/dL (70-110)
[2024-01-10 14:48] LABS: Glucose Point of Care 243 mg/dL (70-110)
[2024-01-10 15:02] LABS: CSF Mononuclear # 0.001 10^3/uL (50-90); Mononuclear WBC CSF % 100 % (50-90); Polynuclear WBC CSF % 0 % (0-10); Red Blood Cell CSF 0 10^3/uL (0-0); White Blood Cell CSF 1 /uL (0-5)
[2024-01-10 15:07] LABS: Appearance CSF CLEAR (CLEAR); Color CSF COLORLESS (COLORLESS); Cyto Order Verification No Order
[2024-01-10 15:27] LABS: Glucose CSF 152 mg/dL (40-70); Total Protein CSF 29 mg/dL (15-45)
[2024-01-10 15:32] LABS: Anion Gap 16.9 (5-19); Blood Urea Nitrogen 11 mg/dL (6-20); Calcium 7.7 mg/dL (8.5-10.5); Carbon Dioxide 18 mmol/L (22-29); Chloride 103 mmol/L (98-107); Creatinine Clr Calc Pharmacy 127.9581; Glomerular Filtration Rate 109.6 mL/min (90-130); Glucose 263 mg/dL (65-115); Osmolality Calculated 287 mOsm/kg (285-295); Potassium 3.9 mmol/L (3.5-5.1); Sodium 134 mmol/L (136-145)
[2024-01-10 15:48] LABS: Glucose Point of Care 228 mg/dL (70-110)
[2024-01-10 16:38] LABS: Glucose Point of Care 229 mg/dL (70-110)
[2024-01-10 17:53] LABS: Glucose Point of Care 233 mg/dL (70-110)
[2024-01-10 18:50] LABS: Glucose Point of Care 242 mg/dL (70-110)
[2024-01-10 19:57] LABS: Glucose Point of Care 241 mg/dL (70-110)
[2024-01-10 20:09] LABS: Anion Gap 14.7 (5-19); Blood Urea Nitrogen 9 mg/dL (6-20); Calcium 7.3 mg/dL (8.5-10.5); Carbon Dioxide 19 mmol/L (22-29); Chloride 105 mmol/L (98-107); Creatinine Clr Calc Pharmacy 127.9581; Glomerular Filtration Rate 109.6 mL/min (90-130); Glucose 251 mg/dL (65-115); Osmolality Calculated 287 mOsm/kg (285-295); Potassium 3.7 mmol/L (3.5-5.1); Sodium 135 mmol/L (136-145)
[2024-01-10] MEDS: dextrose 5%-sod chloride 0.9% 1,000 ML 175 ML IV (20:19)
[2024-01-10] MEDS: atorvastatin 40 mg Tablet PO (21:37)
[2024-01-10] MEDS: insulin glargine 100 units/1 mL 40 UNIT SUBCUT (21:37)
[2024-01-10] MEDS: pantoprazole 40 mg SDV IVP (21:38)
[2024-01-10 23:48] LABS: Anion Gap 16.2 (5-19); Blood Urea Nitrogen 8 mg/dL (6-20); Calcium 7.3 mg/dL (8.5-10.5); Carbon Dioxide 17 mmol/L (22-29); Chloride 105 mmol/L (98-107); Creatinine Clr Calc Pharmacy 127.9581; Glomerular Filtration Rate 109.6 mL/min (90-130); Glucose 371 mg/dL (65-115); Osmolality Calculated 291 mOsm/kg (285-295); Potassium 4.2 mmol/L (3.5-5.1); Sodium 134 mmol/L (136-145)
[2024-01-11] VITALS (26 sets, daily range): BP systolic 93–129; BP diastolic 55–83; PULSE 62–89; RESP 12–18; TEMP 36.7–37.1; O2SAT 95–99
[2024-01-11 00:15] LABS: Glucose Point of Care 260 mg/dL (70-110)
[2024-01-11] MEDS: enoxaparin 40 mg/0.4 mL Syringe SUBCUT (00:23)
[2024-01-11] MEDS: piperacillin-tazobactam 3.375 GM in sodium chloride 0.9% (plus) 50 ML IV ×3 (02:51→22:25)
[2024-01-11 04:15] LABS: Basophils # 0.1 10^3/uL (0.0-0.1); Basophils % 0.8 %; Eosinophils # 0.1 10^3/uL (0.0-0.8); Eosinophils % 1.2 %; Hematocrit 34.1 % (36-47); Lymphocytes # 2.4 10^3/uL (0.8-4.8); Lymphocytes % 32.4 %; Mean Corpuscular HGB Conc 32.6 g/dL (30-55); Mean Corpuscular Volume 86.1 fl (85-98); Mean Platelet Volume 9.4 fL (7.4-10.4); Monocytes # 0.8 10^3/uL (0.2-0.9); Monocytes % 11.3 %; Neutrophils # 3.96 10^3/uL (1.8-7.7); Nucleated Red Blood Cells % 0 %; Platelet Count 304 10^3/cmm (157-399); Red Blood Count 3.96 10^6/uL (3.85-5.65); Red Cell Distribution Width 15.7 % (12.1-15.1); White Blood Count 7.34 10^3/uL (3.29-11.43)
[2024-01-11 04:39] LABS: Chol HDL Ratio 3.11 mg/dL (0.0-4.40); Cholesterol 196 mg/dL (0-200); HDL Cholesterol 63 mg/dL (60-100); LDL Cholesterol Calculated 123 mg/dL (50-129); Magnesium 1.7 mg/dL (1.7-2.3); Triglycerides 52 mg/dL (0-150); VLDL Cholestrol Calculation 10 mg/dL (0-30)
[2024-01-11 04:40] LABS: Alanine Aminotransferase 11 U/L (0-33); Albumin Level 3.1 g/dL (3.5-5.2); Alkaline Phosphatase 56 U/L (35-105); Anion Gap 15.1 (5-19); Aspartate Amino Transferase 17 U/L (0-32); Blood Urea Nitrogen 7 mg/dL (6-20); Calcium 7.7 mg/dL (8.5-10.5); Carbon Dioxide 18 mmol/L (22-29); Chloride 105 mmol/L (98-107); Creatinine Clr Calc Pharmacy 127.9581; Globulin 2.4 g/dL (1.3-4.6); Glomerular Filtration Rate 109.6 mL/min (90-130); Glucose 292 mg/dL (65-115); Osmolality Calculated 287 mOsm/kg (285-295); Potassium 4.1 mmol/L (3.5-5.1); Sodium 134 mmol/L (136-145); Total Bilirubin 0.4 mg/dL (0.15-1.2); Total Protein 5.5 g/dL (6.6-8.7)
[2024-01-11 05:10] LABS: Folate Level 18.6 ng/mL (4.8-37.3)
[2024-01-11] MEDS: vancomycin 1,250 MG/250 ML PIGGYBACK 166.67 MG IV (06:09)
[2024-01-11 06:51] LABS: Glucose Point of Care 202 mg/dL (70-110)
[2024-01-11] MEDS: levothyroxine 100 mcg Tablet PO (08:12)
[2024-01-11] MEDS: insulin lispro 100 unit/1 mL SUBCUT ×4 (08:15→21:00)
[2024-01-11] MEDS: buPROPion XL (24 HR) 150 mg Tablet 450 MG PO (11:03)
[2024-01-11 11:11] LABS: Glucose Point of Care 209 mg/dL (70-110)
--- NOTE | 2024-01-11 11:23 | PC.NURSE ---
Arnold removed per patient request at 0945. Patient was able to void at 1115.
--- NOTE | 2024-01-11 13:38 | PM.PN ---
Subjective Subjective: Overnight patient's anion gap closed up. Today morning seen in ICU. at bedside. Patient is laying comfortably in bed. Awake and alert. Denies of having any nausea. Tolerating diet. Seems to be overwhelmed and emotional because of her diabetes. Vitals/I&O/Wt Last Vital Signs Temp 98.8 F 01/11/24 12:00 Pulse 82 01/11/24 12:00 Resp 18 01/11/24 11:00 BP 104/55 01/11/24 12:00 Pulse Ox 98 01/11/24 12:00 O2 Del Method Room Air 01/11/24 12:00 01/10/24 01/11/24 01/11/24 22:59 06:59 14:59 Intake Total 2653.717 / 2904.600 50 / 2954.600 610 / 610 Output Total 750 / 750 1300 / 2050 650 / 650 Balance 1903.717 / 2154.600 -1250 / 904.600 -40 / -40 Weight last 48 hrs Weight 79.7 kg Weight 73.5 kg Weight 73.5 kg Weight 72 kg Weight 74.843 kg Physical Exam Const: COMMON NORMALS: no acute distress, average body habitus and alert GENERAL APPEARANCE: cooperative, lethargic and well hydrated ORIENTATION/CONSCIOUSNESS: Yes lethargic HENMT: COMMON NORMALS: oropharynx normal Eye: OTHER: Pupils equal. Neck/C-Spine: COMMON NORMALS: no JVD Resp: COMMON NORMALS: normal respiratory effort and clear to auscultation bilaterally AUSCULTATION: clear to auscultation bilaterally Cardio: COMMON NORMALS: no JVD, regular rhythm, S1 normal heart sound present, S2 normal heart sound present and No murmurs present (Cardio) RHYTHM: regular rhythm HEART SOUNDS: S1 normal heart sound present and S2 normal heart sound present GI: COMMON NORMALS: Normal to inspection, nondistended, normoactive bowel sounds present, Soft to palpation and non-tender PALPATION: Yes Soft to palpation Extremity: COMMON NORMALS: no joint enlargement and no pedal edema Neuro: COMMON NORMALS: moves all extremities SENSORIUM/ORIENTATION: Yes alert and Yes lethargic OTHER: No rigidity. No tremor. Psych: COMMON NORMALS: mental status grossly normal, cooperative, denies homicidal ideation and denies suicidal ideation APPEARANCE: Yes grossly normal ATTITUDE: Yes calm and Yes engaged ACTIVITY/MOTOR BEHAVIOR: Yes appropriate eye contact MOOD & AFFECT: Yes anxious, Yes sad and Yes tearful Skin: COMMON NORMALS: no rashes or lesions noted GENERAL SKIN EXAM: no rashes or lesions noted Urinary Catheter Management: Arnold: Cath Placed During This Visit: yes Reason for Continuing Indwelling Catheter: Accurate Measurement of Urinary Output in Critically Ill Patients Urinary Catheter Date of Insertion: 01/09/24 Urinary Catheter Time of Insertion: 23:36 Data 01/11/24 02:25 01/11/24 02:25 Micro: Microbiology 01/10/24 13:10 Gram Stain - Final Cerebrospinal Fluid CSF Culture - Preliminary 01/09/24 20:59 Blood Culture - Preliminary Blood NEGATIVE TO DATE 01/09/24 20:49 Blood Culture - Preliminary Blood NEGATIVE TO DATE 01/09/24 20:59 Bacterial Antigens - Final Urine Kidney 01/09/24 20:59 Legionella Urinary Antigen - Final Unknown Source A&P Assessment and plan (1) DKA (diabetic ketoacidosis): DKA resolved. Patient overwhelmed with diabetes. A1c of 9.7. As per patient forgets to give herself insulin. They have been trying to decrease Humalog hence Trulicity was recently started. Patient last took Trulicity on Saturday. Today is Saturday. Continue with Lantus 40 units daily along with sliding scale at moderate dose protocol. Depending on the insulin requirement in next 24 hours will uptitrate the dose of Lantus. Will try to change Lantus to twice daily. Discussed with the patient regarding various modalities to help her maintain her blood sugars at home. Discussed target blood sugar between 1 50-300 for now. Discussed she should have an alarm on the phone to remind herself to get the Lantus. She should have a sliding scale possibly on the refrigerator. Discussed that she should be able to check her blood sugars 3 times a day before each meal and write down the amount of insulin and the blood sugar she has not follow-up with a primary care within next 2 weeks for further adjustment of medications. Qualifiers: Diabetes mellitus complication detail: without coma Diabetes mellitus type: type 2 Qualified Code(s): E11.10 - Type 2 diabetes mellitus with ketoacidosis without coma (2) Acute encephalopathy: Most likely in setting of DKA along with amphetamine abuse. Urine drug screen positive for methamphetamines. Resolved. Meningitis ruled out. CSF study appreciated. Patient does not have any photophobia, headache, nausea and kernig's sign is negative. Aspiration precaution. Seizure precaution. Follow-up blood culture, CHF culture. Check MRSA swab. For now continue with IV vancomycin. IV Zosyn. (3) Methamphetamine intoxication: As above. She reportedly stated she did take methamphetamine. Monitor for any worsening intoxication, seizure precautions, any signs of withdrawal. Route is unknown. Blood cultures are collected. Requested UDS. (4) Diabetes mellitus, labile: With history of labile diabetes, glucose fluctuating while on insulin with episodic hypoglycemia down into 30s. As above. Plan Abdominal pain: Most likely in setting of DKA. CT abdomen/pelvis negative for acute abnormality. Lipase normal. LFTs within normal limits. Continue with Protonix IV, Zofran as needed. Medical reconciliation appreciated. Restart home dose of levothyroxine. Check TSH. Anxiety/depression: Continue with home dose of bupropion. Full code Carb consistent diet Protonix for PUD prophylaxis Loven[facility] D[facility] Attestations Medical Necessity Statement*: Requires further hospitalization for management of resolving DKA while outpatient insulin dose is set up, altered mental status in setting of meth abuse while meningitis is ruled out Diagnoses DKA (diabetic ketoacidosis) E11.10 Diabetes mellitus complication detail: without coma Diabetes mellitus type: type 2 Acute encephalopathy G93.40 Methamphetamine intoxication F15.929 Diabetes mellitus, labile E10.9
[2024-01-11 16:42] LABS: Glucose Point of Care 248 mg/dL (70-110)
[2024-01-11 18:57] LABS: Vancomycin Trough 4.4 ug/mL (10-15)
[2024-01-11] MEDS: vancomycin 1,750 MG/350 ML PIGGYBACK 175 MG IV (20:12)
[2024-01-11] MEDS: atorvastatin 40 mg Tablet PO (20:12)
[2024-01-11] MEDS: insulin glargine 100 units/1 mL 40 UNIT SUBCUT (21:01)
[2024-01-11] MEDS: pantoprazole 40 mg SDV IVP (22:26)
[2024-01-12] VITALS: BP 101/62; PULSE 81; RESP 16; TEMP 36.8; O2SAT 98
[2024-01-12 00:28] LABS: Glucose Point of Care 62 mg/dL (70-110)
[2024-01-12] MEDS: enoxaparin 40 mg/0.4 mL Syringe SUBCUT (00:30)
[2024-01-12 00:58] LABS: Glucose Point of Care 78 mg/dL (70-110)
--- NOTE | 2024-01-12 01:46 | PC.NURSE ---
Patient called nursing in stating she was sweating and then cold, feeling like her sugar was low. Nurse checked sugar and resulted at 62 via POC. Patient was given juice per protocol. Blood sugar rechecked 15 minutes later and resulted at 78. Per protocol, blood glucose was rechecked 30 minutes later and resulted at 80. Physician notified. Plan of care ongoing.
[2024-01-12 01:47] LABS: Glucose Point of Care 80 mg/dL (70-110)
[2024-01-12 03:38] LABS: Glucose Point of Care 49 mg/dL (70-110)
[2024-01-12 04:00] VITALS: BP 124/79; PULSE 81; RESP 16; TEMP 36.5; O2SAT 100
[2024-01-12] MEDS: vancomycin 1,250 MG/250 ML PIGGYBACK 250 MG IV (04:12)
[2024-01-12 04:16] LABS: Glucose Point of Care 100 mg/dL (70-110)
[2024-01-12 04:18] LABS: Basophils % 0.7 %; Eosinophils # 0.1 10^3/uL (0.0-0.8); Eosinophils % 1.8 %; Hematocrit 36.2 % (36-47); Lymphocytes # 2.4 10^3/uL (0.8-4.8); Lymphocytes % 42.6 %; Mean Corpuscular Hemoglobin 27.2 pg (27-33); Mean Corpuscular Volume 84.8 fl (85-98); Mean Platelet Volume 8.9 fL (7.4-10.4); Monocytes # 0.8 10^3/uL (0.2-0.9); Monocytes % 14.5 %; Neutrophils # 2.26 10^3/uL (1.8-7.7); Nucleated Red Blood Cells % 0 %; Platelet Count 313 10^3/cmm (157-399); Red Blood Count 4.27 10^6/uL (3.85-5.65); Red Cell Distribution Width 15.6 % (12.1-15.1); White Blood Count 5.64 10^3/uL (3.29-11.43)
[2024-01-12 04:48] LABS: Alanine Aminotransferase 11 U/L (0-33); Albumin Level 3.7 g/dL (3.5-5.2); Alkaline Phosphatase 59 U/L (35-105); Anion Gap 13.6 (5-19); Aspartate Amino Transferase 13 U/L (0-32); Blood Urea Nitrogen 9 mg/dL (6-20); Calcium 8.6 mg/dL (8.5-10.5); Carbon Dioxide 25 mmol/L (22-29); Chloride 106 mmol/L (98-107); Creatinine Clr Calc Pharmacy 194.9602; Globulin 2.1 g/dL (1.3-4.6); Glucose 49 mg/dL (65-115); Osmolality Calculated 288 mOsm/kg (285-295); Potassium 3.6 mmol/L (3.5-5.1); Sodium 141 mmol/L (136-145); Total Bilirubin 0.2 mg/dL (0.15-1.2); Total Protein 5.8 g/dL (6.6-8.7)
[2024-01-12 04:56] LABS: Magnesium 1.7 mg/dL (1.7-2.3)
[2024-01-12] MEDS: piperacillin-tazobactam 3.375 GM in sodium chloride 0.9% (plus) 50 ML IV (05:54)
[2024-01-12 06:30] LABS: Glucose Point of Care 194 mg/dL (70-110)
[2024-01-12 06:30] LABS: Glucose Point of Care 325 mg/dL (70-110)
[2024-01-12 08:00] VITALS: BP 107/76; PULSE 68; TEMP 36.6; O2SAT 98
[2024-01-12 08:01] LABS: Glucose Point of Care 292 mg/dL (70-110)
[2024-01-12] MEDS: buPROPion XL (24 HR) 150 mg Tablet 450 MG PO (08:19)
[2024-01-12] MEDS: levothyroxine 100 mcg Tablet PO (08:19)
[2024-01-12] MEDS: insulin lispro 100 unit/1 mL SUBCUT (08:20)
[2024-01-12 09:45] LABS: Glucose Point of Care 233 mg/dL (70-110)
[2024-01-12 11:29] LABS: Glucose Point of Care 164 mg/dL (70-110)
--- NOTE | 2024-01-12 11:50 | PM.DCS ---
Discharge Providers Date of Admission: 01/09/24 21:36 Date of Discharge: January 12, 2024 Attending Provider at Admission: Reggie Hannah Attending Provider at Discharge: Pradeep De La Fuente MD Primary Care Provider: Cheryl Dotson Diagnoses at Discharge Discharge Diagnosis (1) DKA (diabetic ketoacidosis): Status: Acute Qualifiers: Diabetes mellitus complication detail: without coma Diabetes mellitus type: type 2 Qualified Code(s): E11.10 - Type 2 diabetes mellitus with ketoacidosis without coma (2) Acute encephalopathy: Status: Acute (3) Methamphetamine intoxication: Status: Acute (4) Diabetes mellitus, labile: Status: Acute Reason for Visit Reason for Visit: abd pain, n/v Brief History: History as per HPI: 43-year-old lady with history of labile diabetes, on insulin as well as Trulicity, has been reports in the past had difficulties with maintaining blood glucose with intermittent hypoglycemia episodes, presented to ER after developing abdominal pain, nausea, recurrent episodes of vomiting, malaise, fatigue, she initially said she thought was triggered by Trulicity, her, reportedly also later admitted to having taken methamphetamine. Mental status in ER has been on and off per , with some lethargy, confusion. Will blood earlier she was awake, asked for ice chips and threw them on the floor. During my visit she is sleeping, moves all extremities, repositions in bed, does not wake up when I try to ask her questions. In ER she is found with dehydration, metabolic acidosis, ABG 7.19/34.2/44, with anion gap 30.8, bicarb 12, lipase 9, TSH normal, lactic acid 2.1, with positive serum and urine ketones. With leukocytosis 15.25. CT abdomen pelvis without acute process. Hospital Course Hospital Course Patient was admitted to the ICU for evaluation and management of altered mental status in setting of diabetic ketoacidosis and amphetamine abuse. She was started on treatment as per DKA protocol. She responded well to the treatment and her DKA and her mentation improved. Meningitis was ruled out with lumbar puncture. During hospitalization patient and her was found to be extremely stressed and emotional due to diabetes management at home. After reviewing her insulin requirements for 24 hours for better blood sugar control Lantus dose was changed to 30 units twice a day, metformin was discontinued, Humalog and Trulicity were continued as before. Patient was told to keep target blood sugar between 1 50-2 50. She was advised to maintain a blood sugar diary and follow-up with a primary care provider within next 2 weeks for further adjustment of medications as needed. Physical Exam Const: COMMON NORMALS: no acute distress, average body habitus and alert GENERAL APPEARANCE: cooperative, lethargic and well hydrated ORIENTATION/CONSCIOUSNESS: Yes lethargic HENMT: COMMON NORMALS: oropharynx normal Eye: OTHER: Pupils equal. Neck/C-Spine: COMMON NORMALS: no JVD Resp: COMMON NORMALS: normal respiratory effort and clear to auscultation bilaterally AUSCULTATION: clear to auscultation bilaterally Cardio: COMMON NORMALS: no JVD, regular rhythm, S1 normal heart sound present, S2 normal heart sound present and No murmurs present (Cardio) RHYTHM: regular rhythm HEART SOUNDS: S1 normal heart sound present and S2 normal heart sound present GI: COMMON NORMALS: Normal to inspection, nondistended, normoactive bowel sounds present, Soft to palpation and non-tender PALPATION: Yes Soft to palpation Extremity: COMMON NORMALS: no joint enlargement and no pedal edema Neuro: COMMON NORMALS: moves all extremities SENSORIUM/ORIENTATION: Yes alert and Yes lethargic OTHER: No rigidity. No tremor. Psych: COMMON NORMALS: mental status grossly normal, cooperative, denies homicidal ideation and denies suicidal ideation APPEARANCE: Yes grossly normal ATTITUDE: Yes calm and Yes engaged ACTIVITY/MOTOR BEHAVIOR: Yes appropriate eye contact MOOD & AFFECT: Yes anxious Skin: COMMON NORMALS: no rashes or lesions noted GENERAL SKIN EXAM: no rashes or lesions noted Urinary Catheter Management: Arnold: Cath Placed During This Visit: yes Reason for Continuing Indwelling Catheter: Accurate Measurement of Urinary Output in Critically Ill Patients Urinary Catheter Date of Insertion: 01/09/24 Urinary Catheter Time of Insertion: 23:36 Discharge Data Studies Completed and Pending Completed Studies During Hospitalization Category Date Time Status CT abdomen pelvis w con* [id number] Stat Cat Scan 01/09/24 20:[address] head wo con* [id number] Routine Cat Scan 01/09/24 21:47 Completed Fluoro guided lumbar puncture [FL guided lumbarpunc dx* Exams 01/10/24 06:44 Completed [id number]] Routine Pending at discharge Category Date Time Status Blood Culture Stat Lab 01/09/24 20:59 Results CSF Culture & Gram Stain Routine Lab 01/10/24 13:10 Results MAG [Magnesium] AM LABS Lab 01/13/24 04:00 Ordered MRSA [Methicillin Resistant S.aureu] Routine Lab 01/10/24 09:38 Ordered Radiology Impressions Abdomen/Pelvis CT 01/09/24 20:16 IMPRESSION: No acute intra-abdominal process. Head CT 01/09/24 21:47 IMPRESSION: No acute intracranial abnormality. Lumbar Puncture Fluoroscopy 01/10/24 06:44 IMPRESSION: Fluoroscopically guided lumbar puncture. No immediate complications Microbiology 01/10/24 13:10 Cerebrospinal Fluid Gram Stain - Final 01/10/24 13:10 Cerebrospinal Fluid CSF Culture - Preliminary 01/09/24 20:59 Blood Blood Culture - Preliminary NEGATIVE TO DATE 01/09/24 20:49 Blood Blood Culture - Preliminary NEGATIVE TO DATE 01/09/24 20:59 Urine Kidney Bacterial Antigens - Final 01/09/24 20:59 Unknown Source Legionella Urinary Antigen - Final Laboratory Results WBC 5.64 10^3/uL (3.29-11.43) 01/12/24 03:24 RBC 4.27 10^6/uL (3.85-5.65) 01/12/24 03:24 Hgb 11.60 g/dL (11.27-16.99) 01/12/24 03:24 Hct 36.2 % (36-47) 01/12/24 03:24 MCV 84.8 fl (85-98) L 01/12/24 03:24 MCH 27.2 pg (27-33) 01/12/24 03:24 MCHC 32.0 g/dL (30-55) 01/12/24 03:24 RDW 15.6 % (12.1-15.1) H 01/12/24 03:24 Plt Count 313 10^3/cmm (157-399) 01/12/24 03:24 MPV 8.9 fL (7.4-10.4) 01/12/24 03:24 Neut % (Auto) 40.0 % 01/12/24 03:24 Lymph % (Auto) 42.6 % 01/12/24 03:24 [place] % (Auto) 14.5 % 01/12/24 03:24 Eos % (Auto) 1.8 % 01/12/24 03:24 Baso % (Auto) 0.7 % 01/12/24 03:24 Neut # (Auto) 2.26 10^3/uL (1.8-7.7) 01/12/24 03:24 Lymph # (Auto) 2.4 10^3/uL (0.8-4.8) 01/12/24 03:24 [place] # (Auto) 0.8 10^3/uL (0.2-0.9) 01/12/24 03:24 Eos # (Auto) 0.1 10^3/uL (0.0-0.8) 01/12/24 03:24 Baso # (Auto) 0.0 10^3/uL (0.0-0.1) 01/12/24 03:24 Nucleated RBC % (auto) 0 % 01/12/24 03:24 Nucleated RBCs # 0.0 /100WBC 01/12/24 03:24 Specimen Type Arterial 01/09/24 20:15 Sample Site Radial, right 01/09/24 20:15 ABG pH 7.19 (7.35-7.45) L 01/09/24 20:15 ABG pCO2 34.2 mmHg (35-45) L 01/09/24 20:15 ABG pO2 44.1 mmHg (80.0-100.0) L 01/09/24 20:15 ABG HCO3 13.0 mmol/L (22-26) L 01/09/24 20:15 ABG Base Excess -14.2 mmol/L (-2.0-2.0) L 01/09/24 20:15 Manpreet Test Pos 01/09/24 20:15 Hematocrit 37.7 % (37-47) 01/09/24 20:15 O2 Delivery Device None 01/09/24 20:15 [employer] Head ID Cl 01/09/24 20:15 Sodium 141 mmol/L (136-145) 01/12/24 03:24 Potassium 3.6 mmol/L (3.5-5.1) 01/12/24 03:24 Chloride 106 mmol/L (98-107) 01/12/24 03:24 Carbon Dioxide 25 mmol/L (22-29) 01/12/24 03:24 Anion Gap 13.6 (5-19) 01/12/24 03:24 BUN 9 mg/dL (6-20) 01/12/24 03:24 Creatinine 0.4 mg/dL (0.5-0.9) L 01/12/24 03:24 GFR Calculation 175.0 mL/min (90-130) H 01/12/24 03:24 Glucose 49 mg/dL (65-115) L 01/12/24 03:24 POC Glucose 164 mg/dL (70-110) H 01/12/24 11:26 Estimat Average Glucose 232 01/09/24 22:53 Hemoglobin A1c 9.7 % (4.0-6.0) H 01/09/24 22:53 Calculated Osmolality 288 mOsm/kg (285-295) 01/12/24 03:24 Lactic Acid 2.1 mmol/L (0.5-2.2) 01/09/24 19:09 Lactic Acid (Sepsis) 1.7 mmol/L (0.5-2.2) 01/09/24 22:53 Calcium 8.6 mg/dL (8.5-10.5) 01/12/24 03:24 Phosphorus 3.5 mg/dL (2.5-4.5) 01/10/24 03:43 Magnesium 1.7 mg/dL (1.7-2.3) 01/12/24 03:24 Iron 41 ug/dL (37-145) 01/10/24 03:43 TIBC 220 mcg/dl 01/10/24 03:43 % Saturation 18.6 % (20-50) L 01/10/24 03:43 Unsat Iron Binding 179 ug/dL (112-347) 01/10/24 03:43 Total Bilirubin 0.2 mg/dL (0.15-1.2) 01/12/24 03:24 AST 13 U/L (0-32) 01/12/24 03:24 ALT 11 U/L (0-33) 01/12/24 03:24 Alkaline Phosphatase 59 U/L (35-105) 01/12/24 03:24 Creatine Kinase 63 U/L (26-192) 01/09/24 19:09 C-Reactive Protein 4.4 mg/L (0.0-4.9) 01/09/24 19:09 Total Protein 5.8 g/dL (6.6-8.7) L 01/12/24 03:24 Albumin 3.7 g/dL (3.5-5.2) 01/12/24 03:24 Globulin 2.1 g/dL (1.3-4.6) 01/12/24 03:24 Triglycerides 52 mg/dL (0-150) 01/11/24 02:25 Cholesterol 196 mg/dL (0-200) 01/11/24 02:25 LDL Cholesterol, Calc 123 mg/dL (50-129) 01/11/24 02:25 Total VLDL Cholesterol 10 mg/dL (0-30) 01/11/24 02:25 HDL Cholesterol 63 mg/dL (60-100) 01/11/24 02:25 Cholesterol/HDL Ratio 3.11 mg/dL (0.0-4.40) 01/11/24 02:25 Lipase 9 U/L (13-60) L 01/09/24 19:09 Vitamin B12 590 pg/mL (232-1245) 01/10/24 03:43 Folate 18.6 ng/mL (4.8-37.3) 01/11/24 02:25 Procalcitonin 0.30 ng/mL (0-0.5) 01/10/24 03:43 TSH 3.31 uIU/mL (0.27-4.20) 01/09/24 19:09 HCG, Qual Negative (Negative) 01/09/24 19:09 Urine Color Yellow (Yellow) 01/09/24 20:59 Urine Appearance Clear (CLEAR) 01/09/24 20:59 Urine pH 5.5 (5-7) 01/09/24 20:59 Ur Specific [place] 1.030 (1.005-1.030) 01/09/24 20:59 Urine Protein 1+ (Negative) A 01/09/24 20:59 Urine Glucose (UA) 3+ (Normal) H 01/09/24 20:59 Urine Ketones 4+ (Negative) 01/09/24 20:59 Urine Blood 2+ (Negative) A 01/09/24 20:59 Urine Nitrate Negative (Negative) 01/09/24 20:59 Urine Bilirubin Negative (Negative) 01/09/24 20:59 Urine Urobilinogen 1.0 mg/dL (Negative) 01/09/24 20:59 Ur Leukocyte Esterase Negative (Negative) 01/09/24 20:59 Urine RBC 0-2 /hpf (0-2) 01/09/24 20:59 Urine WBC 0-5 /hpf (0-5) 01/09/24 20:59 Ur Squamous Epith Cells 0-5 /hpf (0-5) 01/09/24 20:59 Amorphous Sediment Not Reportable 01/09/24 20:59 Urine Bacteria None seen /hpf (NONE) 01/09/24 20:59 Hyaline Casts 2.46 /lpf 01/09/24 20:59 CSF Appearance Clear (CLEAR) 01/10/24 13:10 CSF Color Colorless (COLORLESS) 01/10/24 13:10 CSF WBC 1 /uL (0-5) 01/10/24 13:10 CSF RBC 0 10^3/uL (0-0) 01/10/24 13:10 CSF Mononuclear # Auto 0.001 10^3/uL (50-90) L 01/10/24 13:10 CSF Mononuclear WBCs % 100 % (50-90) H 01/10/24 13:10 CSF Polynuclear WBCs # 0.000 10^3/uL (0-10) 01/10/24 13:10 CSF Polynuclear WBCs % 0 % (0-10) 01/10/24 13:10 CSF Glucose 152 mg/dL (40-70) H 01/10/24 13:10 CSF Total Protein 29 mg/dL (15-45) 01/10/24 13:10 Vancomycin Trough 4.4 ug/mL (10-15) L 01/11/24 18:16 Urine Opiates Screen Negative ng/mL (Negative) 01/09/24 20:59 Ur Barbiturates Screen Negative ng/mL (Negative) 01/09/24 20:59 Ur Phencyclidine Scrn Negative ng/mL (Negative) 01/09/24 20:59 Ur Amphetamines Screen Positive ng/mL (Negative) H 01/09/24 20:59 U Benzodiazepines Scrn Negative ng/mL (Negative) 01/09/24 20:59 Urine Cocaine Screen Negative ng/mL (Negative) 01/09/24 20:59 U Marijuana (THC) Screen Positive ng/mL (Negative) H 01/09/24 20:59 Serum Ketones Positive (Negative) H 01/09/24 19:09 Adenovirus (PCR) Not detected (NOT DETECT) 01/09/24 23:38 C. pneumoniae DNA (PCR) Not detected (NOT DETECT) 01/09/24 23:38 Coronavirus 229E (PCR) Not detected (NOT DETECT) 01/09/24 23:38 Human Metapneumovir PCR Not detected (NOT DETECT) 01/09/24 23:38 Influenza A (H1) PCR Not detected (NOT DETECT) 01/09/24 23:38 Influ A (H1/09) PCR Not detected (NOT DETECT) 01/09/24 23:38 Influenza A (H3) PCR Not detected (NOT DETECT) 01/09/24 23:38 Influenza Type A (PCR) Not detected (NOT DETECT) 01/09/24 23:38 Influenza Type B (PCR) Not detected (NOT DETECT) 01/09/24 23:38 M. pneumoniae (PCR) Not detected (NOT DETECT) 01/09/24 23:38 Parainfluenza 1 (PCR) Not detected (NOT DETECT) 01/09/24 23:38 Parainfluenza 2 (PCR) Not detected (NOT DETECT) 01/09/24 23:38 Parainfluenza 3 (PCR) Not detected (NOT DETECT) 01/09/24 23:38 Parainfluenza 4 (PCR) Not detected (NOT DETECT) 01/09/24 23:38 RSV Type A (PCR) Not detected (NOT DETECT) 01/09/24 23:38 RSV Type B (PCR) Not detected (NOT DETECT) 01/09/24 23:38 Entero/Rhino (PCR) Not detected (NOT DETECT) 01/09/24 23:38 SARS-CoV-2 (PCR) Not detected (NOT DETECT) 01/09/24 23:38 Vitals Last Vital Signs Temp 97.8 F 01/12/24 08:00 Pulse 68 01/12/24 08:00 Resp 16 01/12/24 04:00 BP 107/76 01/12/24 08:00 Pulse Ox 98 01/12/24 08:00 O2 Del Method Room Air 01/12/24 08:00 Discharge Plan Discharge Patient Disposition: Home Condition: Stable Prescriptions: Continued fluconazole 150 mg tablet 150 mg PO .Q72H PRN (Reason: candidasis) naltrexone 50 mg tablet 50 mg PO DAILY hydroxyzine HCl 50 mg tablet 50 mg PO Q6H PRN (Reason: panic disorder) omeprazole 40 mg capsule,delayed release(DR/EC) 40 mg PO DAILY levothyroxine 100 mcg tablet See Rx Instructions .ROUTE .COMPLEX Rx Instructions: TAKE 1 TABLET BY MOUTH DAILY (DOSE INCREASE, STOP 88mcg DOSE) folic acid 1 mg tablet 1 mg PO DAILY Glucagon Emergency Kit (human) 1 mg recon soln 1 mg SUBCUT ONCE PRN (Reason: low blood sugar) rosuvastatin 10 mg tablet 10 mg PO DAILY bupropion HCl 450 mg tablet extended release 24 hr 450 mg PO DAILY Trulicity 3 mg/0.5 mL pen injector 3 mg SUBCUT Q7D Zofran ODT 8 mg Tablet,Disintegrating 8 mg PO Q8H PRN (Reason: Nausea And Vomiting) Changed Lantus Solostar U-100 Insulin 100 unit/mL (3 mL) insulin pen 30 unit SUBCUT Q12H Qty: 15 0RF Discontinued metformin 500 mg tablet extended release 24 hr 500 mg PO BID Discharge Orders: Discharge Order (Routine); Ordered 01/12/24 Ordered By: Pradeep De La Fuente Referrals: Lesley Elaine MD [Family Provider] - 7-10 days Cheryl Dotson FNP-C [Primary Care Provider] - Discharge Diet: Diabetic Discharge Activity: Resume usual activity and Increase activity as tolerated Patient Instructions: Opioid Safety Activity Restrictions/Additional Instructions: As discussed in detail please stop taking metformin going forward. We should change her dose of Lantus to 30 units twice a day. Continue taking your Humalog as before. Please check your blood sugars Premeal for next 2 weeks and maintain a blood sugar diary and follow-up with a primary care provider within next 2 weeks for further adjustment of medications. Discharge Attestations Time Spent in Discharge Care*: greater than 30 min Specific Discharge Activities: educating patient, educating and/or supporting family/caregiver, discussing with pcp/other providers, discussing with binder caser/social workers/dc planners, documenting/other paperwork and evaluating patient/reviewing data Status at Discharge: Cognitive status at discharge: cognitively intact, Behavioral status at discharge: cooperative, Functional status at discharge: independent ambulation, Overall status at discharge: patient is back to baseline Quality Metrics Clinical Quality Measures [ No reported AMI, CVA or VTE this stay] Coding Level of Care Code 10261 Total time (in minutes) for Discharge: 60 Diagnoses DKA (diabetic ketoacidosis) E11.10 Diabetes mellitus complication detail: without coma Diabetes mellitus type: type 2 Acute encephalopathy G93.40 Methamphetamine intoxication F15.929 Diabetes mellitus, labile E10.9
[2024-01-12 12:00] VITALS: BP 130/72; PULSE 73; RESP 18; TEMP 36.8; O2SAT 99
[2024-01-12 12:41] VITALS: BP 130/72; PULSE 73; RESP 18; TEMP 36.8; O2SAT 99
== END 2024-01-12 12:41 | disposition home or self-care (01) | DRG 637 ==
LOC: ER 19:59 → ICU 21:37 → MEDSURG 01-11 11:13
PROVIDERS: Admitting Provider Internal Medicine; Emergency Provider Nurse Practitioner Family; Family Provider Family Medicine; PCP Nurse Practitioner Family; Visit Provider Student in an Organized Health Care Education/Training Program
DX: E11.10 Type 2 diabetes mellitus with ketoacidosis without coma (principal); G93.41 Metabolic encephalopathy; F15.129 Other stimulant abuse with intoxication, unspecified; E86.0 Dehydration; Z79.85 Long-term (current) use of injectable non-insulin antidiabetic drugs; Z79.4 Long term (current) use of insulin; Z79.84 Long term (current) use of oral hypoglycemic drugs
CPT/HCPCS: 36415; 36416; 36600; 51702; 62328; 70450; 74177; 80048; 80053; 80061; 80202; 80306; 80503; 81003; 81015; 82009; 82550; 82607; 82746; 82803; 82945; 82962; 83036; 83540; 83550; 83605; 83690; 83735; 84100; 84145; 84157; 84443; 84703; 85025; 86140; 86403; 87040; 87070; 87075; 87205; 87449; 87486; 87581; 87633; 89050; 96365; 96366; 96367; 96372; 96375; 96376; 97161; 99285; J0696; J1650; J1815; J2060; J2470; J2543; J2765; J3370; J3372; J3480; J7030; J7042; Q9967

== ENCOUNTER → 2024-01-28 08:18 | Outpatient (BNVA) | payer BC, MEDICAID, SELFPAY | PROVIDERS: Family Provider Family Medicine; PCP Nurse Practitioner Family; Visit Provider Orthopaedic Surgery | DX: M54.50 Low back pain, unspecified (principal); G89.29 Other chronic pain | CPT/HCPCS: 72110 ==

== ENCOUNTER → 2024-02-14 10:41 | Outpatient (BNVA) | payer BC, MEDICAID, SELFPAY | PROVIDERS: Family Provider Family Medicine; PCP Nurse Practitioner Family; Visit Provider Internal Medicine | DX: E10.9 Type 1 diabetes mellitus without complications (principal) | CPT/HCPCS: 36415; 80053; 80061; 82044; 83036; 84681; 86337; 86341 ==

== ENCOUNTER 2024-04-21 12:56 | Outpatient (CLI) | payer BC, MEDICAID, SELFPAY ==
--- NOTE | 2024-04-21 13:00 | MR_ITS ---
WS: [id number] MRI LUMBAR SPINE NONCONTRAST HISTORY: M48.062 - Spinal stenosis, lumbar region with neurogenic ... COMPARISON: Radiograph 01/28/2024 TECHNIQUE: Sagittal and axial multisequence imaging is submitted. Cervical disc protrusions contacting the ventral cervical cord at C5-6 and C6-7. Slight increase in the lumbar lordosis. 50% anterior compression fracture of L1 is not acute. There i s no marrow edema. No acute marrow edema within the lumbar spine. Very mild disc desiccation at L5-S1 . Conus terminates normally at L1-2 disc level. L1-L2: Facet joint arthritis. No stenosis. L2-L3: Mild ligamentum flavum and facet arthritis. No stenosis. L3-L4: Mild bilateral facet joint arthritis and ligamentum flavum hypertrophy. No stenosis. L4-L5: Mild annular disc bulging with mild ligamentum flavum and facet arthritis. There is mild disc encroachment upon the traversing L5 nerve roots. Very mild subarticular recess encroachment. L5-S1: Mild annular disc bulge with a tiny central disc protrusion. Moderate ligamentum flavum hypert rophy and facet arthritis. Small amount of fluid in the RIGHT facet joint. No significant stenosis. Paravertebral soft tissues are negative. MR/MR lumbar spine wo con* [id number] IMPRESSION: 1. Remote 50% anterior compression fracture of L1. 2. No high-grade central or foraminal stenosis. Mild to moderate ligamentum fl avum and facet joint arthritis. Most significant at L5-S1. 3. Very minimal encroachment upon the traversing L5 nerve roots but no high-gr shubham stenosis.
== END 2024-04-21 12:57 | disposition home or self-care (01) ==
LOC: RAD 12:56
PROVIDERS: Family Provider Family Medicine; PCP Nurse Practitioner Family; Visit Provider Orthopaedic Surgery
DX: M48.062 Spinal stenosis, lumbar region with neurogenic claudication (principal); M47.896 Other spondylosis, lumbar region; M47.898 Other spondylosis, sacral and sacrococcygeal region
CPT/HCPCS: 72148

== ENCOUNTER → 2024-09-02 08:31 | Outpatient (BNVA) | payer BC, MEDICAID, SELFPAY | PROVIDERS: Family Provider Family Medicine; PCP Nurse Practitioner Family; Visit Provider Obstetrics & Gynecology | DX: N94.19 Other specified dyspareunia (principal) | CPT/HCPCS: 76830 ==

== ENCOUNTER 2024-09-17 07:29 | Outpatient (CLI) | payer BC, MEDICAID, SELFPAY ==
--- NOTE | 2024-09-17 07:37 | NM_ITS ---
WS: [id number] NUCLEAR MEDICINE HIDA SCAN CLINICAL INFORMATION: RUQ PAIN TECHNIQUE: Following intravenous administration of 7.9 mCi of technetium 99m mebrofenin, images of the abdomen were obtained over the course of 60 minutes. Next, gallbladder ejection fraction was determined by obtaining preprandial and one-hour postprandial images of the gallbladder following oral ingestion of Ensure. FINDINGS: Normal hepatic uptake at 5 minutes. Normal hepatic excretion. Gallbladder is visualized by 10 minutes. No evidence of acute cholecystitis. Normal common bile duct and small bowel activity. Gallbladder ejection fraction 75% within normal limits. No evidence of chronic cholecystitis. NM/NM hepatobiliary w phar* [id number] IMPRESSION: 1. No evidence of acute or chronic cholecystitis. 2. Gallbladder ejection fraction 75% within normal limits.
== END 2024-09-17 07:30 | disposition home or self-care (01) ==
PROVIDERS: PCP Nurse Practitioner Family; Visit Provider Nurse Practitioner Family
DX: R10.11 Right upper quadrant pain (principal)
CPT/HCPCS: 78227; A9537

== ENCOUNTER 2024-12-21 08:14 | Outpatient (CLI) | payer BC, MEDICAID, SELFPAY ==
--- NOTE | 2024-12-21 09:00 | MM_ITS ---
WS: [id number] BILATERAL SCREENING DIGITAL TOMOSYNTHESIS MAMMOGRAM WITH CAD HISTORY: Z12.39 - Encounter for other screening for malignant neop... COMPARISON: 12/16/2023 Bilateral CC and MLO views with tomosynthesis and synthetic mammography submitted. Computer aided detection analyzed. Breast composition: The breasts are extremely dense, which lowers the sensitivity of mammography. No suspicious masses, microcalcifications or architectural distortion. Scattered benign calcifications in each breast. MM/MM [facility] tomosynthesis [id number] IMPRESSION: BI-RADS: 2 - Benign FOLLOW UP: 1 Year Follow-up
== END 2024-12-21 08:15 | disposition home or self-care (01) ==
LOC: RAD 08:15
PROVIDERS: PCP Nurse Practitioner Family; Visit Provider Obstetrics & Gynecology
DX: Z12.31 Encounter for screening mammogram for malignant neoplasm of breast (principal); R92.343 Mammographic extreme density, bilateral breasts
CPT/HCPCS: 76830; 77063; 77067